=== PATIENT | male | born 1985 | race Caucasian/White ===

== ENCOUNTER 2017-12-25 15:50 | Emergency (ER) | payer OTHER ==
[~2017-12-25] VITALS: Ht 172.7 cm; Wt 77.1 kg
[~2017-12-25 15:50] MED LIST: UNOBMED
[2017-12-25] MEDS ORDERED: BUPROPION XL300 MG ORAL (15:52)
--- NOTE | 2017-12-25 16:28 | Emergency Room Report ---
History of Present Illness General Chief Complaint: Overdose Source: Patient Present Illness HPI Mr. Vazquez is a 32 yo male who presents with generalized illness after ingesting alcohol and using methamphetamine. He himself called 911 for generalized illness. He stated that he felt sick. He denies any pain. He requests IV hydration. I reviewed recent ED summary in October alcohol level was greater than 400 at that time. Patient also has a history of mental illness. He takes Wellbutrin. Allergies: Coded Allergies: No Known Allergies (Unverified , 12/25/17) UNABLE TO ASSESS (Unverified , 11/14/17) Patient History Past Medical History: see triage record, old chart reviewed Past Surgical History: unable to obtain Social History: Reports: alcohol use, drug use Reviewed Nursing Documentation: PMH: Agreed; PSxH: Agreed Review of Systems All Other Systems: limited - patient will not cooperate Physical Exam Vital Signs Date Time Temp Pulse Resp B/P (MAP) Pulse Ox O2 Delivery O2 Flow Rate FiO2 12/25/17 15:47 97.6 84 16 132/86 98 Room Air 97.5 Sp02 EP Interpretation: reviewed, normal General Appearance: no apparent distress, alert, GCS 15, non-toxic, other - seems restless, walks aimlessly around the ED Head: normocephalic, atraumatic Eyes: bilateral eye normal inspection, bilateral eye PERRL ENT: hearing grossly normal, normal pharynx, no angioedema, normal voice Neck: full range of motion, supple/symm/no masses Respiratory: chest non-tender, lungs clear, normal breath sounds, no rhonchi, no respiratory distress, no retraction, no accessory muscle use, speaking full sentences Cardiovascular #1: regular rate, rhythm, no edema, no gallop, no murmur, no rub Gastrointestinal: normal bowel sounds, non tender, soft, non-distended, no guarding, no rebound Rectal: deferred Genitourinary: normal inspection, no CVA tenderness Musculoskeletal: back normal, gait/station normal, normal range of motion, non- tender, calf tenderness Neurologic: alert, oriented x3, responsive, motor strength/tone normal, sensory intact, speech normal Psychiatric: memory normal, other - mildly agitated, seems restless, semi- cooperative, needs repetitive reques to stay in room Skin: normal color, no rash, warm/dry, well hydrated Lymphatic: no adenopathy Medical Decision Making Diagnostic Impression: Primary Impression: Alcohol intoxication ER Course Mr. Vazquez received IVF and IV lorazepam in the ED. He will dc'd once sober. BAL + Labs Test 12/25/17 16:20 Urine Opiates Screen Negative (NEGATIVE) Urine Barbiturates Screen Negative (NEGATIVE) Phencyclidine (PCP) Screen Negative (NEGATIVE) Urine Amphetamines Screen Negative (NEGATIVE) Urine Benzodiazepines Screen Negative (NEGATIVE) Urine Cocaine Screen Negative (NEGATIVE) Urine Marijuana (THC) Screen Negative (NEGATIVE) Serum Alcohol 327 mg/dL Last Vital Signs Date Time Temp Pulse Resp B/P (MAP) Pulse Ox O2 Delivery O2 Flow Rate FiO2 12/25/17 15:47 97.6 84 16 132/86 98 Room Air 97.5 Status: improved Disposition: HOME, SELF-CARE Condition: Stable Hannah Bennett MD Dec 25, 2017 16:28
[2017-12-25] MEDS ORDERED: LORazepam Inj 2mg/ml 1ml IV ONE (16:30)
[2017-12-25 17:13] VITALS: BP 134/87
[2017-12-25 18:55] VITALS: BP 127/82
[2017-12-25 21:00] VITALS: BP 122/78
[2017-12-25 21:54] VITALS: BP 122/78
== END 2017-12-25 21:56 | disposition home or self-care (01) ==
LOC: EDBD 15:50 → EMR 16:38
DX: F10.129 Alcohol abuse with intoxication, unspecified (principal); F15.90 Other stimulant use, unspecified, uncomplicated
CPT/HCPCS: 36415; 80307; 80329; 96361; 96374; 99284

== ENCOUNTER 2017-12-26 12:00 | Emergency (ER) | payer OTHER ==
[~2017-12-26] VITALS: Ht 172.7 cm; Wt 95.3 kg
[~2017-12-26 12:00] MED LIST changes: +BUPROPION XL300 MG ORAL
[2017-12-26] MEDS ORDERED: Haloperidol 5mg/ml Inj IM ONE (12:15)
[2017-12-26] MEDS ORDERED: DiphenhydrAMINE 50mg/ml Inj IVP ONE (12:15)
--- NOTE | 2017-12-26 12:18 | Emergency Room Report ---
History of Present Illness General Chief Complaint: Behavioral Complaint Source: Patient (Ant Moya) Present Illness HPI 32-year-old male patient presents ER brought in by ambulance for behavioral complaint. Patient is well-known to this ER, was seen here yesterday for similar symptoms. Patient is currently endorsing SI, states that he would jump off a [address] that he lives at. Police placed him on a 5150 hold. Contrary to triage note, patient denies chest pain at this time. Patient reports history of depression, states he is taking Wellbutrin for symptoms. Denies thoughts of hurting other. Patient appears agitated and restless while resting in his bed. Denies fever, chest pain, shortness of breath, abdominal pain, vomiting, other acute symptoms. Reports that he has drank "a lot" of alcohol and done "multiple drugs". Patient does not report which drugs he has used. (Ant Moya) Allergies: Coded Allergies: No Known Allergies (Unverified , 12/25/17) UNABLE TO ASSESS (Unverified , 11/14/17) Patient History Past Medical History: see triage record Reviewed Nursing Documentation: PMH: Agreed; PSxH: Agreed (Ant Moya) Nursing Documentation-PMH Past Medical History: No History, Except For (Ant Moya) Review of Systems All Other Systems: negative except mentioned in HPI (Ant Moya) Physical Exam Vital Signs Date Time Temp Pulse Resp B/P (MAP) Pulse Ox O2 Delivery O2 Flow Rate FiO2 12/26/17 11:58 98.4 86 18 120/78 98 Room Air 98.4 Sp02 EP Interpretation: reviewed, normal General Appearance: well appearing, no apparent distress, alert, GCS 15, non- toxic Head: normocephalic, atraumatic Eyes: bilateral eye normal inspection, bilateral eye PERRL ENT: hearing grossly normal, normal pharynx, no angioedema, normal voice, uvula midline, moist mucus membranes Neck: full range of motion Respiratory: lungs clear, normal breath sounds, no rhonchi, no respiratory distress, no accessory muscle use, no wheezing, speaking full sentences Cardiovascular #1: regular rate, rhythm, no edema Gastrointestinal: non tender, soft, no mass, non-distended, no guarding, no rebound Genitourinary: no CVA tenderness Musculoskeletal: back normal, digits/nails normal, gait/station normal, normal range of motion, non-tender Neurologic: alert, oriented x3, responsive, motor strength/tone normal, sensory intact Psychiatric: mood/affect normal Skin: no rash (Ant Moya) Medical Decision Making PA Attestation Dr. Velásquez is my supervising Physician whom patient management has been discussed with. (Ant Moya) Diagnostic Impression: Primary Impression: Alcohol intoxication Qualified Codes: F10.920 - Alcohol use, unspecified with intoxication, uncomplicated Additional Impression: Suicidal ideation ER Course Pt. presents to the ED c/o thoughts of hurting himself. Ddx considered but are not limited to anxiety, depression, drug use, alcohol use , behavioral disorder. Vital signs: are WNL, pt. is afebrile Ordered labs, urine drug screen, serum alcohol. ER COURSE: consult Dr. Velásquez, will provide patient with Haldol and Benadryl due to patient being agitated. patient is on a hold, requested sitter for the patient. physical examination, lungs clear auscultation, no abdominal tenderness to palpation, no focal neural deficits. Consult with Dr. Velásquez, agrees with assessment and treatment plan EKG denies elevation or arrhythmia, no QT prolongation CBC mild elevation of WBCs, likely due to patient agitation, no obvious signs of infection, patient afebrile, does not require antibiotics at this time. CMP unremarkable Salicylates and acetaminophen not elevated UA negative UDS negative Serum alcohol elevated, will provide patient with IV fluids. Troponin negative low suspicion for AL or cardiac etiology due to negative troponin and EKG negative for ST elevation Patient likely intoxicated, elevated serum alcohol consistent with patient exam findings. Will order repeat serum alcohol to monitor alcohol levels. patient is medically cleared at this time. Will attempt to place patient in psychiatric facility.. Repeat serum alcohol shows decreased levels. Patient signed out to Dr. Shearer. - Please note that this Emergency Department Report was dictated using [employer] technology software, occasionally this can lead to erroneous entry secondary to interpretation by the dictation equipment. Labs Test 12/26/17 12:20 12/26/17 12:23 White Blood Count 11.2 K/UL (4.8-10.8) Red Blood Count 5.56 M/UL (4.70-6.10) Hemoglobin 17.8 G/DL (14.2-18.0) Hematocrit 48.5 % (42.0-52.0) Mean Corpuscular Volume 87 FL (80-99) Mean Corpuscular Hemoglobin 32.0 PG (27.0-31.0) Mean Corpuscular Hemoglobin Concent 36.8 G/DL (32.0-36.0) Red Cell Distribution Width 10.4 % (11.6-14.8) Platelet Count 384 K/UL (150-450) Mean Platelet Volume 6.4 FL (6.5-10.1) Neutrophils (%) (Auto) 75.8 % (45.0-75.0) Lymphocytes (%) (Auto) 17.5 % (20.0-45.0) Monocytes (%) (Auto) 5.6 % (1.0-10.0) Eosinophils (%) (Auto) 0.1 % (0.0-3.0) Basophils (%) (Auto) 1.0 % (0.0-2.0) Sodium Level 144 MMOL/L (136-145) Potassium Level 3.7 MMOL/L (3.5-5.1) Chloride Level 106 MMOL/L (98-107) Carbon Dioxide Level 26 MMOL/L (21-32) Anion Gap 12 mmol/L (5-15) Blood Urea Nitrogen 6 mg/dL (7-18) Creatinine 0.9 MG/DL (0.55-1.30) Estimat Glomerular Filtration Rate > 60 mL/min (>60) Glucose Level 119 MG/DL (74-106) Calcium Level 8.4 MG/DL (8.5-10.1) Total Bilirubin 0.4 MG/DL (0.2-1.0) Aspartate Amino Transf (AST/SGOT) 32 U/L (15-37) Alanine Aminotransferase (ALT/SGPT) 64 U/L (12-78) Alkaline Phosphatase 95 U/L (46-116) Troponin I 0.001 ng/mL (0.000-0.056) Total Protein 7.4 G/DL (6.4-8.2) Albumin 3.5 G/DL (3.4-5.0) Globulin 3.9 g/dL Albumin/Globulin Ratio 0.9 (1.0-2.7) Salicylates Level 1.2 ug/mL (2.8-20) Acetaminophen Level < 2 MCG/ML (10-30) Serum Alcohol 297 mg/dL Urine Color Pale yellow Urine Appearance Clear Urine pH 8 (4.5-8.0) Urine Specific [place] 1.015 (1.005-1.035) Urine Protein Negative (NEGATIVE) Urine Glucose (UA) Negative (NEGATIVE) Urine Ketones Negative (NEGATIVE) Urine Blood Negative (NEGATIVE) Urine Nitrite Negative (NEGATIVE) Urine Bilirubin Negative (NEGATIVE) Urine Urobilinogen Normal MG/DL (0.0-1.0) Urine Leukocyte Esterase Negative (NEGATIVE) Urine Opiates Screen Negative (NEGATIVE) Urine Barbiturates Screen Negative (NEGATIVE) Phencyclidine (PCP) Screen Negative (NEGATIVE) Urine Amphetamines Screen Negative (NEGATIVE) Urine Benzodiazepines Screen Negative (NEGATIVE) Urine Cocaine Screen Negative (NEGATIVE) Urine Marijuana (THC) Screen Negative (NEGATIVE) (Ant Moya P.A.) ER Course Pt has been stable through the night. Keep asking for ativan or seroquel. He is medically cleared for discharge. (Baljit Lynn MD) EKG Diagnostic Results Rate: normal Rhythm: NSR ST Segments: no acute changes Other Impression no QT prolongation, QT/QTc 358/405 ms ASA given to the pt in ED: No PA Scribe Text Chago Moya PA-C (Ant Moya P.AOlimpia) Rhythm Strip Diag. Results EP Interpretation: yes Rate: 77 Rhythm: NSR, no PVC's, no ectopy PA Scribe Text Chago Moya PA-C (Ant Moya P.A.) Last Vital Signs Date Time Temp Pulse Resp B/P (MAP) Pulse Ox O2 Delivery O2 Flow Rate FiO2 12/26/17 11:58 98.4 86 18 120/78 98 Room Air 98.4 (Ant Moya P.A.) Ant Moya P.AOlimpia Dec 26, 2017 12:18 Baljit Lynn MD Dec 27, 2017 06:23
[2017-12-26 12:39] VITALS: BP 123/87
[2017-12-26 12:51] LABS: EOSINOPHILS % (AUTO) 0.1 % (0.0-3.0); HEMATOCRIT 48.5 % (42.0-52.0); HEMOGLOBIN 17.8 G/DL (14.2-18.0); LYMPHOCYTES % (AUTO) 17.5 % (20.0-45.0); MEAN CORPUSCULAR VOLUME 87 FL (80-99); MONOCYTES % (AUTO) 5.6 % (1.0-10.0); NEUTROPHILS % (AUTO) 75.8 % (45.0-75.0); PLATELET COUNT 384 K/UL (150-450); RED BLOOD COUNT 5.56 M/UL (4.70-6.10); RED CELL DISTRIBUTION WIDTH 10.4 % (11.6-14.8); WHITE BLOOD COUNT 11.2 K/UL (4.8-10.8)
[2017-12-26 12:55] LABS: APPEARANCE,URINE CLEAR; BILIRUBIN, URINE NEGATIVE (NEGATIVE); COLOR,URINE PALE YELLOW; GLUCOSE, URINE (UA) NEGATIVE (NEGATIVE); KETONES,URINE NEGATIVE (NEGATIVE); LEUKOCYTE ESTERASE ,URINE NEGATIVE (NEGATIVE); NITRITE,URINE NEGATIVE (NEGATIVE); PH,URINE 8 (4.5-8.0); PROTEIN,URINE NEGATIVE (NEGATIVE); UROBILINOGEN,URINE NORMAL MG/DL (0.0-1.0)
[2017-12-26 13:07] LABS: ANION GAP 12 mmol/L (5-15); BLOOD UREA NITROGEN 6 mg/dL (7-18); CALCIUM 8.4 MG/DL (8.5-10.1); CARBON DIOXIDE 26 MMOL/L (21-32); CHLORIDE 106 MMOL/L (98-107); CREATININE 0.9 MG/DL (0.55-1.30); POTASSIUM 3.7 MMOL/L (3.5-5.1); SODIUM 144 MMOL/L (136-145)
[2017-12-26 13:13] LABS: ALANINE AMINOTRANSFERASE 64 U/L (12-78); ALBUMIN 3.5 G/DL (3.4-5.0); ALBUMIN/GLOBULIN RATIO 0.9 (1.0-2.7); ALKALINE PHOSPHATASE 95 U/L (46-116); ASPARTATE AMINO TRANSFERASE 32 U/L (15-37); BILIRUBIN,TOTAL 0.4 MG/DL (0.2-1.0)
[2017-12-26] MEDS ORDERED: LORazepam Inj 2mg/ml 1ml IV ONE (15:30)
[2017-12-26 15:39] VITALS: BP 126/72
[2017-12-26 18:09] VITALS: BP 128/68
[2017-12-26 20:00] VITALS: BP 117/81
[2017-12-26 20:35] VITALS: BP 133/92
[2017-12-27 01:22] VITALS: BP 115/75
[2017-12-27] MEDS ORDERED: DiphenhydrAMINE 50mg/ml Inj IVP ONE (04:30)
[2017-12-27 05:01] VITALS: BP 134/83
[2017-12-27 08:01] VITALS: BP 129/84
[2017-12-27] MEDS ORDERED: Acetaminophen 500mg (ES) tab ORAL ONE (08:15)
[2017-12-27 11:35] VITALS: BP 131/84
[2017-12-27 11:49] VITALS: BP 131/84
--- NOTE | 2017-12-27 15:02 | Emergency Room Report ---
Physical Exam Vital Signs Date Time Temp Pulse Resp B/P (MAP) Pulse Ox O2 Delivery O2 Flow Rate FiO2 12/26/17 11:58 98.4 86 18 120/78 98 Room Air 98.4 Medical Decision Making Diagnostic Impression: Primary Impression: Alcohol intoxication Qualified Codes: F10.920 - Alcohol use, unspecified with intoxication, uncomplicated ER Course 32-year-old male presents ED for EtOH, psychiatric problems Patient initially seen and evaluated by MARY ELLEN Moya; please see his note for full history and physical Labs show positive EtOH, negative drug screen Patient evaluated by Dr. Tolbert (psychiatry). Did not believe patient is is danger to self. Can be safely discharged to home. 5150 lifted. I agree with her assessment and patient can be safely discharged to home Diagnosisalcohol intoxication Stable discharged to home. Follow with PMD/psych. Return to ED if symptoms recur or worsen Labs Test 12/26/17 12:20 12/26/17 12:23 12/26/17 20:57 12/27/17 04:44 White Blood Count 11.2 K/UL (4.8-10.8) Red Blood Count 5.56 M/UL (4.70-6.10) Hemoglobin 17.8 G/DL (14.2-18.0) Hematocrit 48.5 % (42.0-52.0) Mean Corpuscular Volume 87 FL (80-99) Mean Corpuscular Hemoglobin 32.0 PG (27.0-31.0) Mean Corpuscular Hemoglobin Concent 36.8 G/DL (32.0-36.0) Red Cell Distribution Width 10.4 % (11.6-14.8) Platelet Count 384 K/UL (150-450) Mean Platelet Volume 6.4 FL (6.5-10.1) Neutrophils (%) (Auto) 75.8 % (45.0-75.0) Lymphocytes (%) (Auto) 17.5 % (20.0-45.0) Monocytes (%) (Auto) 5.6 % (1.0-10.0) Eosinophils (%) (Auto) 0.1 % (0.0-3.0) Basophils (%) (Auto) 1.0 % (0.0-2.0) Sodium Level 144 MMOL/L (136-145) Potassium Level 3.7 MMOL/L (3.5-5.1) Chloride Level 106 MMOL/L (98-107) Carbon Dioxide Level 26 MMOL/L (21-32) Anion Gap 12 mmol/L (5-15) Blood Urea Nitrogen 6 mg/dL (7-18) Creatinine 0.9 MG/DL (0.55-1.30) Estimat Glomerular Filtration Rate > 60 mL/min (>60) Glucose Level 119 MG/DL (74-106) Calcium Level 8.4 MG/DL (8.5-10.1) Total Bilirubin 0.4 MG/DL (0.2-1.0) Aspartate Amino Transf (AST/SGOT) 32 U/L (15-37) Alanine Aminotransferase (ALT/SGPT) 64 U/L (12-78) Alkaline Phosphatase 95 U/L (46-116) Troponin I 0.001 ng/mL (0.000-0.056) Total Protein 7.4 G/DL (6.4-8.2) Albumin 3.5 G/DL (3.4-5.0) Globulin 3.9 g/dL Albumin/Globulin Ratio 0.9 (1.0-2.7) Salicylates Level 1.2 ug/mL (2.8-20) Acetaminophen Level < 2 MCG/ML (10-30) Serum Alcohol 297 mg/dL 171 mg/dL < 3 mg/dL Urine Color Pale yellow Urine Appearance Clear Urine pH 8 (4.5-8.0) Urine Specific [place] 1.015 (1.005-1.035) Urine Protein Negative (NEGATIVE) Urine Glucose (UA) Negative (NEGATIVE) Urine Ketones Negative (NEGATIVE) Urine Blood Negative (NEGATIVE) Urine Nitrite Negative (NEGATIVE) Urine Bilirubin Negative (NEGATIVE) Urine Urobilinogen Normal MG/DL (0.0-1.0) Urine Leukocyte Esterase Negative (NEGATIVE) Urine Opiates Screen Negative (NEGATIVE) Urine Barbiturates Screen Negative (NEGATIVE) Phencyclidine (PCP) Screen Negative (NEGATIVE) Urine Amphetamines Screen Negative (NEGATIVE) Urine Benzodiazepines Screen Negative (NEGATIVE) Urine Cocaine Screen Negative (NEGATIVE) Urine Marijuana (THC) Screen Negative (NEGATIVE) Last Vital Signs Date Time Temp Pulse Resp B/P (MAP) Pulse Ox O2 Delivery O2 Flow Rate FiO2 12/27/17 11:49 98.1 85 20 131/84 99 Room Air 98.1 Status: improved Disposition: HOME, SELF-CARE Condition: Stable Referrals: [facility],REFERR[facility] (PCP) Bart Siddiqui MD Dec 27, 2017 15:02
--- NOTE | 2017-12-31 12:24 | Cardiology Report ---
APPROVED REPORT EKG Measurement Heart [id number] Normal sinus rhythm Normal ECG
== END 2017-12-27 11:45 | disposition home or self-care (01) ==
LOC: EDBD 12:00 → EMR 12:32
DX: F10.129 Alcohol abuse with intoxication, unspecified (principal); R45.851 Suicidal ideations
CPT/HCPCS: 36415; 80053; 80307; 80329; 81003; 84484; 85025; 93005; 96361; 96372; 96374; 96375; 96376; 99284; J1200; J1630

== ENCOUNTER 2018-01-23 02:40 | Emergency (ER) | payer OTHER ==
[~2018-01-23] VITALS: Ht 172.7 cm; Wt 95.3 kg
--- NOTE | 2018-01-23 02:47 | Emergency Room Report ---
History of Present Illness General Chief Complaint: Alcohol Intoxication Source: Patient, Medical Record, EMS Present Illness HPI This is a 32-year-old male with a history of drug and alcohol abuse. He has been here many times for the same thing. His roommate called 911 because patient was acting abnormally. He was walking apartment complex naked. He was intoxicated this morning and was sent to a alcohol treatment center in [place]. Patient apparently left ear. He admits to alcohol use. Also use cocaine and heroin and methamphetamine. He to his roommate he was to overdose on his drugs. He denies any suicidal thoughts and homicidal thought here. Allergies: Coded Allergies: No Known Allergies (Unverified , 12/25/17) UNABLE TO ASSESS (Unverified , 11/14/17) Patient History Past Medical History: see triage record, old chart reviewed Past Surgical History: other Pertinent Family History: none Social History: Reports: smoking, alcohol use, drug use Immunizations: other Reviewed Nursing Documentation: PMH: Agreed; PSxH: Agreed Nursing Documentation-PMH Past Medical History: No History, Except For History Of Psychiatric Problem: Yes - substance abuse, prozac Review of Systems Eye: Denies: eye pain, blurred vision ENT: Denies: ear pain, nose congestion, throat swelling Respiratory: Denies: cough, shortness of breath Cardiovascular: Denies: chest pain, palpitations Gastrointestinal: Denies: abdominal pain, diarrhea, nausea, vomiting Musculoskeletal: Denies: back pain, joint pain Skin: Denies: rash Neurological: Denies: headache, numbness Endocrine: Denies: increased thirst, increased urine Hematologic/Lymphatic: Denies: easy bruising All Other Systems: negative except mentioned in HPI Physical Exam Vital Signs Date Time Temp Pulse Resp B/P (MAP) Pulse Ox O2 Delivery O2 Flow Rate FiO2 01/23/18 02:39 98.2 64 16 124/76 100 Room Air vitals normal Sp02 EP Interpretation: reviewed, normal General Appearance: well appearing, no apparent distress, alert, other - Intoxicated Head: normocephalic, atraumatic Eyes: bilateral eye PERRL, bilateral eye EOMI ENT: hearing grossly normal, normal pharynx Neck: full range of motion, supple, no meningismus Respiratory: chest non-tender, lungs clear, normal breath sounds Cardiovascular #1: regular rate, rhythm, no murmur Gastrointestinal: normal bowel sounds, non tender, no mass, no organomegaly, no bruit, non-distended Musculoskeletal: back normal, normal range of motion Neurologic: alert, oriented x3 Psychiatric: mood/affect normal Skin: warm/dry Medical Decision Making Diagnostic Impression: Primary Impression: Acute alcoholic intoxication Qualified Codes: F10.929 - Alcohol use, unspecified with intoxication, unspecified ER Course Patient presents with altered mental status secondary to alcohol intoxication. He would only claimed drug use urine drug is negative. He denies suicidal thoughts or homicidal thought. No criteria for 5150. This patient is a chronic risk of self injury due to poor impulse control, limited coping skills, and judgment intermittently impaired by intoxication. I believe that the available clinical evidence to suggest that these characteristics derived primarily from personality disorder and are likely very stable over time. Hospitalization would likely attenuate risk of self-harm only during snf period, without lasting risk reduction. Serious self-harm , while possible, would likely be inadvertent, and because of impulsivity, and foreseeable. For these reasons, I do not believe hospitalization would provide meaningful reduction in risk of self-harm. Last Vital Signs Date Time Temp Pulse Resp B/P (MAP) Pulse Ox O2 Delivery O2 Flow Rate FiO2 01/23/18 02:39 98.2 64 16 124/76 100 Room Air Status: improved Disposition: HOME, SELF-CARE Condition: Stable Scripts Chlordiazepoxide (Chlordiazepoxide HCl) 25 Mg Capsule 25 MG ORAL THREE TIMES A DAY, #15 CAP 0 Refills Prov: Baljit Lynn MD 01/23/18 Patient Instructions: Alcohol Intoxication, [id number] Additional Instructions: Abstain from alcohol. Go to rehabilitation. Follow-up with your doctor in 7 days. Return if symptom worsen. Baljit Lynn MD Jan 23, 2018 02:47
[2018-01-23 03:30] VITALS: BP 122/76
[2018-01-23] MEDS ORDERED: LIBRIUM25 MG ORAL (04:10)
[2018-01-23 06:59] VITALS: BP 120/80
== END 2018-01-23 06:58 | disposition home or self-care (01) ==
LOC: EDBD 02:40 → EMR 02:52
DX: F10.129 Alcohol abuse with intoxication, unspecified (principal); F17.200 Nicotine dependence, unspecified, uncomplicated
CPT/HCPCS: 36415; 80307; 80329; 99283

== ENCOUNTER 2018-01-24 12:41 | Emergency (ER) | payer OTHER ==
[~2018-01-24] VITALS: Ht 172.7 cm; Wt 86.2 kg
[~2018-01-24 12:41] MED LIST changes: +LIBRIUM25 MG ORAL
[2018-01-24] MEDS ORDERED: Haloperidol 5mg/ml Inj IM ONE ×2 (13:00→15:00)
[2018-01-24] MEDS ORDERED: DiphenhydrAMINE 50mg/ml Inj IVP ONE (13:00)
[2018-01-24 13:45] VITALS: BP_SYST 126; BP_SYST 128; BP_DIAS 76; BP_DIAS 77
[2018-01-24 13:50] LABS: APPEARANCE,URINE CLEAR; BILIRUBIN, URINE NEGATIVE (NEGATIVE); COLOR,URINE PALE YELLOW; GLUCOSE, URINE (UA) NEGATIVE (NEGATIVE); KETONES,URINE 2+ (NEGATIVE); LEUKOCYTE ESTERASE ,URINE NEGATIVE (NEGATIVE); NITRITE,URINE NEGATIVE (NEGATIVE); PH,URINE 6.5 (4.5-8.0); PROTEIN,URINE NEGATIVE (NEGATIVE); UROBILINOGEN,URINE NORMAL MG/DL (0.0-1.0)
[2018-01-24 14:00] VITALS: BP 132/80
[2018-01-24 14:33] VITALS: BP 134/65
--- NOTE | 2018-01-24 15:00 | Emergency Room Report ---
History of Present Illness General Chief Complaint: Alcohol Intoxication Source: Medical Record, EMS (Bora Dunaway MD) Present Illness HPI Patient brought by EMS with h/o alcohol consumption. Patient not answering most questions. Denies SI. Review of prior visits reveal multiple presentations for alcohol intoxication. No evidence of head trauma. (Bora Dunaway MD) Allergies: Coded Allergies: No Known Allergies (Unverified , 12/25/17) UNABLE TO ASSESS (Unverified , 11/14/17) Patient History Limited by: medical condition Past Medical History: see triage record, old chart reviewed Social History: Reports: alcohol use; Denies: drug use Social History Narrative patient is single and lives in an apartment Reviewed Nursing Documentation: PMH: Agreed; PSxH: Agreed (Bora Dunaway MD) Nursing Documentation-PMH Past Medical History: No History, Except For Hx Cardiac Problems: No - substance abuse (Bora Dunaway MD) Review of Systems All Other Systems: limited (Bora Dunaway MD) Physical Exam Vital Signs Date Time Temp Pulse Resp B/P (MAP) Pulse Ox O2 Delivery O2 Flow Rate FiO2 01/24/18 12:25 98.4 84 12 130/79 98 Room Air Sp02 EP Interpretation: reviewed, normal General Appearance: no apparent distress, lethargic Head: normocephalic, atraumatic Eyes: bilateral eye PERRL, bilateral eye Scleral Injection ENT: moist mucus membranes Neck: supple Respiratory: lungs clear, normal breath sounds Cardiovascular #1: regular rate, rhythm Cardiovascular #2: 2+ radial (R) Gastrointestinal: normal inspection, non tender, non-distended, decreased bowel sounds Genitourinary: no CVA tenderness Musculoskeletal: back normal, normal range of motion Neurologic: responsive, DTRs symmetric, sensory intact, other - ataxia , nystagmus Psychiatric: other - lethargic Skin: normal inspection, warm/dry (Bora Dunaway MD) Medical Decision Making Restraint Attestation I, Bora Dunaway MD, have personally evaluated this patient. Laboratory tests have been reviewed and addressed accordingly. The patient is deemed to present a danger to themselves and/or others. This is based on the exam, history ( provided by patient, EMS/[facility] and/or family) and observed or reported behavior. Attempts for non-invasive measures have been considered and/or attempted, however, have been futile. It is in the best interest of the nursing staff, the patient, and others involved in this patient's care that behavioral restraints be applied. Patient evaluation reveals the following: acute alcohol intoxication not responsive to attempts for cooperation. Patient demonstrates risk of self harm. Medical: Alcohol Abuse Reaction to Intervention: No change (Bora Dunaway MD) Diagnostic Impression: Primary Impression: Alcohol intoxication Qualified Codes: F10.929 - Alcohol use, unspecified with intoxication, unspecified ER Course Patient with lethargy and h/o alcohol intoxication. DDX: alcohol intoxication, electrolyte abnormality, other drug ingestoins amongst others. Patient with non focal neurologic exam and CT head not indicated. Clear lungs with good oxygen sat - CXR not indicated. Lab evaluation and IV hydration. Patient stumbling through ED, ataxic gait and almost falling. Attempts to have patient stay on bed unsuccessful. Restraints ordered. Also sedation ordered. EKG without injury. Labs with elevated BAL. Low CO2 felt to be related to elevated BAL. Patient still agitated. Haldol repeated. More sedated. Signed out to Dr. Dougherty. Laboratory Tests Test 01/24/18 13:33 01/24/18 15:00 Urine Color Pale yellow Urine Appearance Clear Urine pH 6.5 (4.5-8.0) Urine Specific [place] 1.010 (1.005-1.035) Urine Protein Negative (NEGATIVE) Urine Glucose (UA) Negative (NEGATIVE) Urine Ketones 2+ (NEGATIVE) H Urine Blood Negative (NEGATIVE) Urine Nitrite Negative (NEGATIVE) Urine Bilirubin Negative (NEGATIVE) Urine Urobilinogen Normal MG/DL (0.0-1.0) Urine Leukocyte Esterase Negative (NEGATIVE) Urine Opiates Screen Negative (NEGATIVE) Urine Barbiturates Screen Negative (NEGATIVE) Phencyclidine (PCP) Screen Negative (NEGATIVE) Urine Amphetamines Screen Negative (NEGATIVE) Urine Benzodiazepines Screen Negative (NEGATIVE) Urine Cocaine Screen Negative (NEGATIVE) Urine Marijuana (THC) Screen Negative (NEGATIVE) White Blood Count 7.6 K/UL (4.8-10.8) Red Blood Count 5.22 M/UL (4.70-6.10) Hemoglobin 16.0 G/DL (14.2-18.0) Hematocrit 45.1 % (42.0-52.0) Mean Corpuscular Volume 86 FL (80-99) Mean Corpuscular Hemoglobin 30.6 PG (27.0-31.0) Mean Corpuscular Hemoglobin Concent 35.4 G/DL (32.0-36.0) Red Cell Distribution Width 10.3 % (11.6-14.8) L Platelet Count 312 K/UL (150-450) Mean Platelet Volume 6.7 FL (6.5-10.1) Neutrophils (%) (Auto) 63.5 % (45.0-75.0) Lymphocytes (%) (Auto) 31.7 % (20.0-45.0) Monocytes (%) (Auto) 3.5 % (1.0-10.0) Eosinophils (%) (Auto) 0.2 % (0.0-3.0) Basophils (%) (Auto) 1.1 % (0.0-2.0) Sodium Level 143 MMOL/L (136-145) Potassium Level 3.3 MMOL/L (3.5-5.1) L Chloride Level 104 MMOL/L (98-107) Carbon Dioxide Level 20 MMOL/L (21-32) L Anion Gap 19 mmol/L (5-15) H Blood Urea Nitrogen 12 mg/dL (7-18) Creatinine 0.8 MG/DL (0.55-1.30) Estimate Glomerular Filtration Rate > 60 mL/min (>60) Glucose Level 77 MG/DL (74-106) Calcium Level 8.1 MG/DL (8.5-10.1) L Total Bilirubin 0.7 MG/DL (0.2-1.0) Aspartate Amino Transferase (AST) 43 U/L (15-37) H Alanine Aminotransferase (ALT) 60 U/L (12-78) Alkaline Phosphatase 93 U/L (46-116) Total Creatine Kinase 242 U/L (26-308) Total Protein 8.2 G/DL (6.4-8.2) Albumin 3.9 G/DL (3.4-5.0) Globulin 4.3 g/dL Albumin/Globulin Ratio 0.9 (1.0-2.7) L Salicylates Level 0.3 ug/mL (2.8-20) L Acetaminophen Level < 2 MCG/ML (10-30) L Serum Alcohol 343 mg/dL (Bora Dunaway MD) ER Course This patient presents with acute alcoholic intoxication. Please see Dr. Dunaway' s full history and physical. The patient's laboratory workup was noncontributory other than an elevated EtOH and transaminitis. There is no evidence of trauma or injury on physical examination of this patient. The patient was allowed to sober up in the emergency department and was able to ambulate and articulate desire to go home. The patient was clinically sober at the time of discharge. No acute emergency medical condition is identified. The patient was educated on the dangers of alcohol intoxication and abuse. The patient was given a list of the local rehabilitation clinics. Laboratory Tests Test 01/24/18 13:33 01/24/18 15:00 Urine Color Pale yellow Urine Appearance Clear Urine pH 6.5 (4.5-8.0) Urine Specific [place] 1.010 (1.005-1.035) Urine Protein Negative (NEGATIVE) Urine Glucose (UA) Negative (NEGATIVE) Urine Ketones 2+ (NEGATIVE) H Urine Blood Negative (NEGATIVE) Urine Nitrite Negative (NEGATIVE) Urine Bilirubin Negative (NEGATIVE) Urine Urobilinogen Normal MG/DL (0.0-1.0) Urine Leukocyte Esterase Negative (NEGATIVE) Urine Opiates Screen Negative (NEGATIVE) Urine Barbiturates Screen Negative (NEGATIVE) Phencyclidine (PCP) Screen Negative (NEGATIVE) Urine Amphetamines Screen Negative (NEGATIVE) Urine Benzodiazepines Screen Negative (NEGATIVE) Urine Cocaine Screen Negative (NEGATIVE) Urine Marijuana (THC) Screen Negative (NEGATIVE) White Blood Count 7.6 K/UL (4.8-10.8) Red Blood Count 5.22 M/UL (4.70-6.10) Hemoglobin 16.0 G/DL (14.2-18.0) Hematocrit 45.1 % (42.0-52.0) Mean Corpuscular Volume 86 FL (80-99) Mean Corpuscular Hemoglobin 30.6 PG (27.0-31.0) Mean Corpuscular Hemoglobin Concent 35.4 G/DL (32.0-36.0) Red Cell Distribution Width 10.3 % (11.6-14.8) L Platelet Count 312 K/UL (150-450) Mean Platelet Volume 6.7 FL (6.5-10.1) Neutrophils (%) (Auto) 63.5 % (45.0-75.0) Lymphocytes (%) (Auto) 31.7 % (20.0-45.0) Monocytes (%) (Auto) 3.5 % (1.0-10.0) Eosinophils (%) (Auto) 0.2 % (0.0-3.0) Basophils (%) (Auto) 1.1 % (0.0-2.0) Sodium Level 143 MMOL/L (136-145) Potassium Level 3.3 MMOL/L (3.5-5.1) L Chloride Level 104 MMOL/L (98-107) Carbon Dioxide Level 20 MMOL/L (21-32) L Anion Gap 19 mmol/L (5-15) H Blood Urea Nitrogen 12 mg/dL (7-18) Creatinine 0.8 MG/DL (0.55-1.30) Estimate Glomerular Filtration Rate > 60 mL/min (>60) Glucose Level 77 MG/DL (74-106) Calcium Level 8.1 MG/DL (8.5-10.1) L Total Bilirubin 0.7 MG/DL (0.2-1.0) Aspartate Amino Transferase (AST) 43 U/L (15-37) H Alanine Aminotransferase (ALT) 60 U/L (12-78) Alkaline Phosphatase 93 U/L (46-116) Total Creatine Kinase 242 U/L (26-308) Total Protein 8.2 G/DL (6.4-8.2) Albumin 3.9 G/DL (3.4-5.0) Globulin 4.3 g/dL Albumin/Globulin Ratio 0.9 (1.0-2.7) L Salicylates Level 0.3 ug/mL (2.8-20) L Acetaminophen Level < 2 MCG/ML (10-30) L [facility] E[facility] Diagnostic Results Rate: normal Rhythm: NSR ST Segments: no acute changes (Bora Dunaway MD) Rhythm Strip Diag. Results EP Interpretation: yes Rhythm: NSR, no PVC's, no ectopy (Bora Dunaway MD) Status: improved (Bora Dunaway MD) Status: improved (Leilani Carpenter [place]lim[place]) Disposition: HOME, SELF-CARE Condition: Improved Referrals: [facility]ERR[facility] (PCP) Patient Instructions: Alcohol Abuse and Nutrition, Alcohol Intoxication, Easy- to-Read Bora Dunaway MD Jan 24, 2018 15:00 Leilani Carpenter DO Jan 24, 2018 21:05
[2018-01-24 15:23] LABS: BASOPHILS % (AUTO) 1.1 % (0.0-2.0); EOSINOPHILS % (AUTO) 0.2 % (0.0-3.0); HEMATOCRIT 45.1 % (42.0-52.0); LYMPHOCYTES % (AUTO) 31.7 % (20.0-45.0); MEAN CORPUSCULAR VOLUME 86 FL (80-99); MONOCYTES % (AUTO) 3.5 % (1.0-10.0); NEUTROPHILS % (AUTO) 63.5 % (45.0-75.0); PLATELET COUNT 312 K/UL (150-450); RED BLOOD COUNT 5.22 M/UL (4.70-6.10); RED CELL DISTRIBUTION WIDTH 10.3 % (11.6-14.8); WHITE BLOOD COUNT 7.6 K/UL (4.8-10.8)
[2018-01-24 15:30] LABS: ANION GAP 19 mmol/L (5-15); BLOOD UREA NITROGEN 12 mg/dL (7-18); CALCIUM 8.1 MG/DL (8.5-10.1); CARBON DIOXIDE 20 MMOL/L (21-32); CHLORIDE 104 MMOL/L (98-107); CREATININE 0.8 MG/DL (0.55-1.30); POTASSIUM 3.3 MMOL/L (3.5-5.1); SODIUM 143 MMOL/L (136-145)
[2018-01-24 15:36] LABS: ALANINE AMINOTRANSFERASE 60 U/L (12-78); ALBUMIN 3.9 G/DL (3.4-5.0); ALBUMIN/GLOBULIN RATIO 0.9 (1.0-2.7); ALKALINE PHOSPHATASE 93 U/L (46-116); ASPARTATE AMINO TRANSFERASE 43 U/L (15-37); BILIRUBIN,TOTAL 0.7 MG/DL (0.2-1.0); CREATINE KINASE 242 U/L (26-308)
[2018-01-25 00:36] VITALS: BP 133/67
[2018-01-25 00:42] VITALS: BP 137/66
--- NOTE | 2018-01-27 15:09 | Cardiology Report ---
APPROVED REPORT EKG Measurement Heart [id number] Normal sinus rhythm Normal ECG
== END 2018-01-25 00:44 | disposition home or self-care (01) ==
LOC: EDBD 12:41 → EMR 12:58
DX: F10.129 Alcohol abuse with intoxication, unspecified (principal)
CPT/HCPCS: 36415; 80053; 80307; 80329; 81003; 82550; 85025; 93005; 96360; 99284; J1200; J1630